=== PATIENT | female | born 1955 | race Caucasian/White ===

== ENCOUNTER → 2021-09-07 | Outpatient (CLI) | payer OTHER, SELFPAY ==
--- NOTE | 2021-09-07 12:21 | US_ITS ---
STUDY: RENAL ULTRASOUND - COMPLETE REASON FOR EXAM: Female, 66 years old. UTI TECHNIQUE: Ultrasound evaluation of the kidneys was performed with real-time and static arteaga-scale imaging. COMPARISON: None. FINDINGS: RIGHT KIDNEY: Normal location of the right kidney, which is normal in size. The right kidney measures 11.5 cm. There is a normal cortex of the right kidney. The renal cortex measures 1.2 cm. There is no right renal mass or cyst. Possible stone in the renal pelvis. There is no right hydronephrosis. DISTAL RIGHT URETER: There is non-visualization of the distal right ureter. There is no demonstrated right ureterovesical junction calculus. There is a visualized right ureteral jet. LEFT KIDNEY: Normal location of the left kidney, which is normal in size. The left kidney measures 11.7 cm. There is a normal cortex of the left kidney. The renal cortex measures 1.8 cm. 1 cm cyst in the upper pole of the left kidney. There are no left renal calculi. There is no left hydronephrosis. DISTAL LEFT URETER: There is non-visualization of the distal left ureter. There is no demonstrated left ureterovesical junction calculus. There is a visualized left ureteral jet. BLADDER: The distended urinary bladder has a volume of 88 ml. The empty urinary bladder has a volume of ml. There is a normal wall thickness of the distended urinary bladder. There is no demonstrated mass within the urinary bladder. There are no demonstrated bladder calculi. US/Kidney and Bladder IMPRESSION: Possible right renal stone but no hydronephrosis. CT may be useful. Electronically Signed: Joaquin Vega MD at 18:11 EDT ,
== END | disposition home or self-care (01) ==
PROVIDERS: Referring Provider Urology; Visit Provider Urology
DX: N39.0 Urinary tract infection, site not specified (principal)
CPT/HCPCS: 76770

== ENCOUNTER → 2021-10-26 | Outpatient (CLI) | payer OTHER, SELFPAY ==
--- NOTE | 2021-10-26 11:30 | RAD_ITS ---
STUDY: X-RAY - ABDOMEN/PELVIS REASON FOR EXAM: Female, 66 years old. History of kidney stones. TECHNIQUE: Single AP view of the abdomen / pelvis on 4 images. COMPARISON: None. FINDINGS: Normal visualized lung bases. There is an unremarkable bowel gas pattern. There is no demonstrated free abdominal air. Substantial bowel contents and air overlying the renal shadows. 14 mm in diameter calcification projected to the right of the L3-4 intervertebral disc space. The visualized liver, spleen and kidneys are grossly normal in size and morphology. Cholecystectomy clips. Normal visualized osseous structures. RAD/Abdomen Single View IMPRESSION: 14 mm in diameter calcification projected adjacent to the L3 intervertebral disc space. No acute abnormality identified. Electronically Signed: Lev Perdue, at 13:43 EDT ,
== END | disposition home or self-care (01) ==
LOC: MTRAD 11:27
PROVIDERS: PCP Family Medicine; Referring Provider Urology; Visit Provider Urology
DX: N20.0 Calculus of kidney (principal)
CPT/HCPCS: 74018

== ENCOUNTER 2021-11-02 05:51 | Day surgery (SDC) | payer OTHER, SELFPAY ==
[2021-11-02] VITALS (7 sets, daily range): BP systolic 104–145; BP diastolic 52–75; PULSE 70–77; RESP 16; TEMP 36.4–36.6; O2SAT 92–100; BMI 54.1
[2021-11-02] MEDS: Lactated Ringers 1,000 ML 15 ML IV ×2 (06:10→10:03)
[2021-11-02] MEDS: Lubricating Jelly 60 GM Tube 30 GM (07:27)
[2021-11-02] MEDS: Ciprofloxacin 400 MG/200 ML BAG 200 MG IV (07:50)
--- NOTE | 2021-11-02 08:18 | PCM.OPRPT ---
Report of Operation Date of Procedure: 11/02/21 Pre-Operative Diagnosis: Urethral stenosis, right renal calculus, urinary tract infections Post-Operative Diagnosis: Same Surgery/Procedure Performed:: Urethral dilation, cystoscopy, right ureteral stent insertion, right renal extracorporal shockwave lithotripsy Surgeon: Jennifer Hill Type of Anesthesia: General Specimen's removed: None Description of Procedure: The patient is a 66-year-old female who presented to the office for evaluation of urinary tract infections and was found to have a large right renal calculus in addition to a urethral stenosis. Informed consent was obtained and she agreed to proceed with surgical evaluation and management. She was taken to the operating room placed on the operating room table. An seizure monitored the head, neck, airway, IV access and vital signs throughout the case. Once anesthesia was appropriate ministered, the patient was placed into dorsal lithotomy position was prepped and draped in usual sterile fashion. At this time the urethra was dilated from 12 Marshallese to 28 Marshallese without complication or difficulty. The cystoscope was then inserted through the urethra under direct visualization into the urinary bladder which was found to be without evidence of mass, erythema, ulceration or foreign body. The right ureteral orifice was identified in the correct anatomic position. It was intubated with a 0.035 Glidewire which advanced easily into the renal pelvis. A 6 Marshallese 22 cm JJ stent was placed over the wire with good positioning in the renal pelvis as well as the urinary bladder. At this time the patient was repositioned on the lithotripsy table. The stone was easily identified and 3000 shocks were applied. It appeared to be well fragmented at the conclusion of the case. The patient was then awakened and taken to the recovery room in good condition. There were no complications during this procedure. Grafts/Implants Used: 6 x 22 JJ stent Complications None Admit VTE Documentation VTE Present on Admission: Yes VTE Mechan Device Prophylaxis: SCD's VTE Pharm Prophylaxis ordered?: No Reason prophylaxis not ordered:: Treatment Not Indicated
--- NOTE | 2021-11-02 08:31 | DCINST_ITS ---
Discharge Instructions Diet Discharge Diet: No restrictions Activity Discharge Activity: Return to Normal Activity May resume sexual activity in: No Restrictions Dressing / Incision Call your doctor if you observe: Fever of 101 or Higher, Inability to urinate and Inability to have a bowel movement Follow Up Care Please Follow Up With: Jennifer Hill MD When: In 3 weeks in the office with a KUB just prior to the appointment Test Results: Test results from this visit will be discussed in further detail at your follow- up appointment, if applicable. Discharge Plan Admission Attending Provider: Jennifer Hill Primary Care Provider: Esvin Jennings Discharge Orders/Prescriptions Prescriptions: New ondansetron HCl [ondansetron HCl] 8 mg tablet 8 mg PO Q8H PRN PRN (Reason: Nausea) 7 Days Qty: 20 0RF oxycodone-acetaminophen [Percocet] 5-325 mg tablet 1 tab PO Q8H PRN (Reason: pain) 3 Days Qty: 10 0RF phenazopyridine [Pyridium] 200 mg tablet 200 mg PO TID PRN PRN (Reason: Bladder Spasms) 7 Days Qty: 30 0RF sulfamethoxazole-trimethoprim [sulfamethoxazole-trimethoprim] 800-160 mg tablet 1 tab PO BID 3 Days Qty: 6 0RF Rx Instructions: Hold the nightly Bactrim while taking this Continued atorvastatin 20 mg Tablet 20 mg PO DAILY sulfamethoxazole-trimethoprim 400-80 mg Tablet 1 tab PO QHS divalproex [Depakote] 500 mg Tablet,Delayed Release (Dr/Ec) 500 mg PO QHS carbamazepine 200 mg Tablet Extended Release 12 Hr 200 mg PO BID ascorbic acid (vitamin C) [Vitamin C] 500 mg Capsule, Extended Release 500 mg PO DAILY topiramate 100 mg Tablet 200 mg PO QHS multivitamin Capsule 1 cap PO DAILY docusate sodium [Stool Softener] 100 mg Tablet 100 mg PO QHS naproxen [Naprosyn] 500 mg Tablet 500 mg PO BID Probiotic 3 billion cell Capsule 3,000 mmu cells PO DAILY Rx Instructions: administer with a meal topiramate 100 mg Capsule,Extended Release 24hr 100 mg PO DAILY d-mannose 500 mg Capsule 1,000 mg PO DAILY Referrals / Follow Up: Esvin Jennings MD [Primary Care Provider] - Disposition Disposition (needs filled in before D/C Order can be placed): Home, Self Care
[2021-11-02] MEDS: oxyCODONE 5 MG Tablet PO (10:33)
[2021-11-02] MEDS: Acetaminophen 325 MG Tablet PO (10:33)
== END 2021-11-02 11:02 | disposition home or self-care (01) ==
LOC: SDC 05:52 → AC 05:53
PROVIDERS: PCP Family Medicine; Referring Provider Urology; Visit Provider Urology
PROC: (CPT 50590; principal; 2021-11-02 07:20)
DX: N35.92 Unspecified urethral stricture, female (principal); G40.909 Epilepsy, unspecified, not intractable, without status epilepticus; N20.0 Calculus of kidney; N39.0 Urinary tract infection, site not specified; J45.909 Unspecified asthma, uncomplicated; G43.909 Migraine, unspecified, not intractable, without status migrainosus; Z79.899 Other long term (current) drug therapy; N39.46 Mixed incontinence; E78.00 Pure hypercholesterolemia, unspecified; Z78.0 Asymptomatic menopausal state; N39.44 Nocturnal enuresis
CPT/HCPCS: 52332; 50590; 00910; J7120; C2625; J0744; J2405

== ENCOUNTER → 2021-11-23 | Outpatient (CLI) | payer OTHER, SELFPAY ==
--- NOTE | 2021-11-23 09:36 | RAD_ITS ---
EXAM: XR ABDOMEN, 1 VIEW CLINICAL INDICATION: kidney stone TECHNIQUE: Frontal supine view of the abdomen/pelvis. This report was created using [employer] report generation technology. COMPARISON: 10/26/2021 FINDINGS: LOWER THORAX: No acute pathology. GASTROINTESTINAL TRACT: Unremarkable. Non-obstructive. No bowel or stomach distention. ORGANS: There are surgical clips in the right upper quadrant from cholecystectomy. No organomegaly. No abnormal calcifications. BONES/JOINTS: No acute pathology. SOFT TISSUES: No acute pathology. TUBES, LINES AND DEVICES: Ureteral stent is in place and the distal tip coiled in the pelvis. The proximal portion is seen overlying the L3 vertebral body possibly within a medially located left kidney or a horseshoe kidney. RAD/Abdomen Single View IMPRESSION: Ureteral stent with the proximal portion overlying the mid lumbar spine possibly within a medially located left kidney or a horseshoe kidney. Electronically Signed: Dandre Murillo MD at 10:46 EDT ,
== END | disposition home or self-care (01) ==
LOC: MTRAD 09:29
PROVIDERS: PCP Family Medicine; Referring Provider Urology; Visit Provider Urology
DX: N20.0 Calculus of kidney (principal)
CPT/HCPCS: 74018